=== PATIENT | male | born 1975 | race Caucasian/White ===

== ENCOUNTER 2017-10-14 13:26 | Emergency (ER) | payer MEDICARE, MEDICAID ==
[~2017-10-14] VITALS: Ht 180.3 cm; Wt 100.0 kg
[2017-10-14 13:29] VITALS: Ht 180.3 cm; Wt 100.0 kg
[2017-10-14] MEDS ORDERED: RISPERDAL4 MG PO (13:32)
[2017-10-14] MEDS ORDERED: NEURONTIN 300300 MG PO (13:32)
[2017-10-14 14:54] VITALS: BP 120/82
== END 2017-10-14 14:58 | disposition home or self-care (01) ==
LOC: D.ER 13:26
DX: F43.20 Adjustment disorder, unspecified (principal); Z86.59 Personal history of other mental and behavioral disorders; F15.11 Other stimulant abuse, in remission; F17.200 Nicotine dependence, unspecified, uncomplicated